=== PATIENT | female | born 1995 | race Caucasian/White ===

== ENCOUNTER 2016-10-28 02:41 | Emergency (ER) | payer OTHER ==
[2016-10-28 02:48] VITALS: BP 113/70; PULSE 65; RESP 19; TEMP 98.4; O2SAT 92
[2016-10-28] MEDS ORDERED: AMOXICILLIN/CLAVULANATE POT 875/125 MG TAB PO ONE (03:08)
--- NOTE | 2016-10-28 03:08 | EDPHY ---
H & P Stated Complaint: L ear pain/pressure Time Seen by Provider: 10/28/16 03:01 HPI/ROS: Chief Complaint: Left ear pain HPI: 21-year-old female presenting with 2 days of nasal congestion woke this morning at midnight with severe left ear pain. Has been waxing waning since then. Pain is from anywhere from a 2/10 to a 8/10. Does have a history of prior infections and actually had to have a graft for a tympanic membrane repair. Pain feels similar to prior infections. No fevers or chills. No headache. Does have some port lions decreased hearing in that ear. There has been no discharge. No swelling or water activities. ROS: 10 point Review of Systems is negative except as noted in the HPI. PMH: Otitis media, left tympanic membrane graft Social History: No smoking, no alcohol, no recreational drug use Family History: non-contributory Physical Exam: Gen: Awake, Alert, No Distress HEENT: Nose: Significant congestion, clear rhinorrhea Ears: She left TM is erythematous and bulging with an effusion, right TM is normal. Auditory canals are clear Eyes: PERRLA, EOMI Mouth: Moist mucosa Neck: Supple, no JVD, mild cervical lymphadenopathy Chest: nontender, lungs clear to auscultation Heart: S1, S2 normal, no murmur Skin: no rash Neuro: CN II-XII intact, Sensation grossly intact, Strength 5/5 in bilateral upper and lower extremities - Personal History LMP (Females 10-55): 15-21 Days Ago Current Tetanus/Diphtheria Vaccine: Unsure - Medical/Surgical History Hx Asthma: No Hx Chronic Respiratory Disease: No Hx Diabetes: No Hx Cardiac Disease: No Hx Renal Disease: No Hx Cirrhosis: No Hx Alcoholism: No Hx HIV/AIDS: No Hx Splenectomy or Spleen Trauma: No Other PMH: PMHx: environmental allergies. PSHx: T&A, "ear tubes"; ear graft L ear, septoplasty - Social History Smoking Status: Never smoked Constitutional: Initial Vital Signs Temperature (C) 36.9 C 10/28/16 02:43 Heart Rate 65 10/28/16 02:43 Respiratory Rate 19 10/28/16 02:43 Blood Pressure 113/70 10/28/16 02:43 O2 Sat (%) 92 10/28/16 02:43 O2 Delivery Mode Room Air Allergies/Adverse Reactions: No Known Allergies Allergy (Unverified 10/28/16 02:43) Home Medications: Medication Instructions Recorded Amoxicillin/Clavulanate Pot 875 mg PO BID #20 tab 10/28/16 [Augmentin 875 MG TAB (*)] Ama 28 Tablet 10/28/16 Departure - Departure Disposition: Home, Routine, Self-Care Clinical Impression: Acute otitis media Condition: Good Instructions: Otitis Media (ED) Additional Instructions: May use Sudafed [id number] for nasal decongestion. May also use Afrin nasal spray for 3 days only. Take your full course of antibiotics. Follow up with your Ear Nose and Throat doctor in 4-5 days if symptoms are not improving. Referrals: Sushma Marques MD [Medical Doctor] - As per Instructions Prescriptions: Amoxicillin/Clavulanate Pot [Augmentin 875 MG TAB (*)] 875 mg PO BID #20 tab
== END 2016-10-28 03:20 | disposition home or self-care (01) ==
DX: H66.92 Otitis media, unspecified, left ear (principal)